=== PATIENT | male | born 1945 | race Caucasian/White ===

== ENCOUNTER → 2017-08-23 | Outpatient (CLI) | payer OTHER, MEDICARE | LOC: FIMAGING 10:34 | PROVIDERS: ATTEND Orthopaedic Surgery | DX: M17.12 Unilateral primary osteoarthritis, left knee (principal); M25.462 Effusion, left knee ==

== ENCOUNTER 2017-09-04 09:15 | Observation (INO) | payer OTHER, MEDICARE ==
[~2017-09-04 09:15] MED LIST: ROPIVACAINE 0.2% 80 MG, EPINEPHrine 0.2 MG, KETOROLAC TROMETHAMINE 30 MG in SYRINGE 0 ML IU ONE; TRANEXAMIC ACID 3,000 MG in NS 50 ML IRR ONE
[2017-09-04] MEDS ORDERED: TRANEXAMIC ACID 3,000 MG/50 ML BAG IRR ONE (10:48)
[2017-09-04] MEDS ORDERED: VANCOMYCIN 1 GM VIAL ONE (10:48)
--- NOTE | 2017-09-04 11:06 | PDHPUP ---
History & Physical Update H&P update statement: This history and physical update is based on an assessment of the patient which was completed after admission or registration (within 24 hours), but prior to the surgery/procedure. H&P update: H&P reviewed & patient examined, no change in patient's condition since H&P completed
[2017-09-04] MEDS ORDERED: LIDOCAINE 1% 2 ML INJ ID PRN (11:38)
[2017-09-04] MEDS ORDERED: ACETAMINOPHEN 325 MG TAB PO ONE (11:38)
[2017-09-04] MEDS ORDERED: ceFAZolin 2 GM/SWFI 2 GM/20 ML SYR IVP ONE (11:38)
[2017-09-04] MEDS ORDERED: DEXAMETHASONE 4 MG/ML VIAL IVP ONE (11:38)
[2017-09-04] MEDS ORDERED: FAMOTIDINE 20 MG TAB PO ONE (11:38)
[2017-09-04] MEDS ORDERED: LR 1,000 ML IV ONE (11:38)
[2017-09-04] MEDS ORDERED: PROPOFOL/EMULSION 500 MG/50 ML BOTTLE IV ONE (12:08)
[2017-09-04] MEDS ORDERED: LIDOCAINE 2% 5 ML SDV ONE (12:09)
[2017-09-04] MEDS ORDERED: ACETAMINOPHEN 325 MG TAB ONE (12:24)
--- NOTE | 2017-09-04 13:03 | PDANEPAE ---
ANE History of Present Illness left knee OA ANE Past Medical History - Cardiovascular History Hx Hypertension: No Hx Arrhythmias: No Hx Chest Pain: No Hx Coronary Artery / Peripheral Vascular Disease: No Hx CHF / Valvular Disease: No Hx Palpitations: No - Pulmonary History Hx COPD: No Hx Asthma/Reactive Airway Disease: No Hx Recent Upper Respiratory Infection: No Hx Oxygen in Use at Home: No Hx Sleep Apnea: No Sleep Apnea Screening Result - Last Documented: Negative Pulmonary History Comment: L or R pt cannot remember which sidehemi diaphram not working correctly - Neurologic History Hx Cerebrovascular Accident: No Hx Seizures: No Hx Dementia: No - Endocrine History Hx Diabetes: No Hypothyroid: No Hyperthyroid: No Obesity: no - Renal History Hx Renal Disorders: No - Liver History Hx Hepatic Disorders: No - Neurological & Psychiatric Hx Hx Neurological and Psychiatric Disorders: Yes Neurological / Psychiatric History Comment: depression - Cancer History Hx Cancer: No - Congenital Disorder History Hx Congenital Disorders: No - GI History Hx Gastrointestinal Disorders: No - Other Health History Other Health History: inflammed hair follicle on buttock - Chronic Pain History Chronic Pain: Yes (right knee) - Surgical History Prior Surgeries: arthroscopy x 2 ANE Review of Systems Review of systems is: negative Review of Systems: - Exercise capacity METS (RN): 6 METS ANE Patient History - Allergies Allergies/Adverse Reactions: No Known Allergies Allergy (Verified 09/04/17 12:17) - Home Medications Home medications: home medication list seen and reviewed Home Medications: Acetaminophen [Tylenol 325mg (*)] 325 mg PO DAILY PRN 07/30/17 [Last Taken 08/28] Cholecalciferol Vit D3 [Vitamin D3 2000 units tab (OTC)] 2,000 units PO DAILY [Last Taken 08/21/17] Escitalopram Oxalate [Lexapro] 20 mg PO DAILY 07/30/17 [Last Taken 09/04/17 08: 00] RX: Herbals/Supplements -Info Only 1 ea PO DAILY 07/30/17 [Last Taken 08/21/17] Vitamin B Complex [Super B-50 Complex] 1 each PO DAILY 07/30/17 [Last Taken ] buPROPion XL [Wellbutrin Xl] 150 mg PO DAILY 07/30/17 [Last Taken 09/04/17 08:00 ] - NPO status NPO Since - Liquids (Date): 09/04/17 NPO Since - Liquids (Time): 10:00 NPO Since - Solids (Date): 09/03/17 NPO Since - Solids (Time): 23:30 - Anes Hx Anes Hx: no prior problems - Smoking Hx Smoking Status: Never smoked - Family Anes Hx Family Hx Anesthesia Complications: none ANE Labs/Vital Signs - Vital Signs Blood Pressure: 136/92 Heart Rate: 70 Respiratory Rate: 14 O2 Sat (%): 90 Height: 177.8 cm Weight: 71.668 kg ANE Physical Exam - Airway Neck exam: FROM Mallampati Score: Class 1 Mouth exam: normal dental/mouth exam - Pulmonary Pulmonary: no respiratory distress - Cardiovascular Cardiovascular: regular rate and rhythym - ASA Status ASA Status: II ANE Anesthesia Plan Anesthesia Plan: spinal Regional Anesthesia: single shot NB, adductor canal FNB
[2017-09-04] MEDS ORDERED: fentaNYL 100 MCG/2 ML INJ ONE ×2 (13:24→14:35)
[2017-09-04] MEDS ORDERED: DEXAMETHASONE 4 MG/ML VIAL ONE (13:35)
[2017-09-04] MEDS ORDERED: PHENYLEPHRINE HCL 100 MCG/ML SYR ONE (13:49)
[2017-09-04] MEDS ORDERED: ONDANSETRON 4 MG/2 ML VIAL IVP PRN ×2 (14:08→14:47)
[2017-09-04] MEDS ORDERED: ACETAMINOPHEN 500 MG TAB PO PRN (14:08)
[2017-09-04] MEDS ORDERED: OXYCODONE/APAP 5/325 TAB PO PRN (14:08)
[2017-09-04] MEDS ORDERED: NALOXONE HCL 0.4 MG/ML INJ IVP PRN (14:08)
[2017-09-04] MEDS ORDERED: LR 500 ML IV PRN (14:08)
[2017-09-04] MEDS ORDERED: HYDROmorphONE/DILAUDID 1 MG/ML INJ IVP PRN (14:08)
[2017-09-04] MEDS ORDERED: PROMETHAZINE HCL 25 MG/ML INJ IVP PRN ×2 (14:08→14:47)
[2017-09-04] MEDS ORDERED: fentaNYL 100 MCG/2 ML INJ IVP PRN (14:08)
--- NOTE | 2017-09-04 14:08 | POSTANESTH ---
Post Anesthetic Evaluation Cardiovascular Status: Normal, Stable Respiratory Status: Normal, Stable Level of Consciousness/Mental Status: Can Participate in Eval Pain Control: Adequate, Prn Tx Ordered Nausea/Vomiting Control: Adequate, Prn Tx Ordered Complications Possibly Related to Anesthesia: None Noted
[2017-09-04] MEDS ORDERED: PROMETHAZINE HCL 25 MG SUPPR PR PRN (14:47)
[2017-09-04] MEDS ORDERED: POLYETHYLENE GLYCOL 3350 17 GM PKT PO PRN (14:47)
[2017-09-04] MEDS ORDERED: DIPHENOXYLATE/ATROPINE LOMOTIL 1 TAB PO PRN (14:47)
[2017-09-04] MEDS ORDERED: MAGNESIUM HYDROXIDE 30 ML UDCUP PO PRN (14:47)
[2017-09-04] MEDS ORDERED: TEMAZEPAM 15 MG CAP PO PRN (14:47)
[2017-09-04] MEDS ORDERED: LACTULOSE 20 GM/30 ML UDCUP PO PRN (14:47)
[2017-09-04] MEDS ORDERED: CYCLOBENZAPRINE 10 MG TAB PO PRN (14:47)
[2017-09-04] MEDS ORDERED: diphenhydrAMINE 25 MG CAP PO PRN (14:47)
[2017-09-04] MEDS ORDERED: METOCLOPRAMIDE 10 MG/2 ML VIAL IVP PRN (14:47)
[2017-09-04] MEDS ORDERED: oxyCODONE IR 5 MG TAB PO PRN (14:47)
[2017-09-04] MEDS ORDERED: BISACODYL 10 MG SUPP PR PRN (14:47)
[2017-09-04] MEDS ORDERED: ONDANSETRON DISINTEGRATING 4 MG TAB PO PRN (14:47)
--- NOTE | 2017-09-04 14:47 | POSTOPPROG ---
Post Op Note Date of Operation: 09/04/17 Surgeon: Suma Coley Paper Colorer: tatianna coley Anesthesiologist: dr. moralez Anesthesia: Spinal, Other (Specify) (adductor canal block) Pre-op Diagnosis: left knee OA Post-op Diagnosis: same Indication: left knee pain due to OA that failed conservative measures Procedure: L TKA robot assist Findings: severe knee OA Inf/Abcess present in the surg proc area at time of surgery?: No EBL: 50-100
[2017-09-04] MEDS ORDERED: LR 1,000 ML IV SCH (15:00)
[2017-09-04] MEDS: ACETAMINOPHEN 325 MG TAB PO SCH ×2 (18:21→22:36)
[2017-09-04] MEDS: FAMOTIDINE 20 MG TAB PO SCH (20:35)
[2017-09-04] MEDS: SENNOSIDES/DOCUSATE SODIUM TAB PO SCH (20:35)
[2017-09-04] MEDS: ASPIRIN 81 MG CHEWABLE TAB PO SCH (20:35)
[2017-09-04] MEDS: ceFAZolin 2 GM/DEXTROSE 100 ML IV SCH (20:35)
[2017-09-05] MEDS: ACETAMINOPHEN 325 MG TAB PO SCH (05:55)
[2017-09-05] MEDS: ceFAZolin 2 GM/DEXTROSE 100 ML IV SCH (05:55)
[2017-09-05 07:37] VITALS: BP 145/78; PULSE 64; RESP 16; TEMP 97.6; O2SAT 93
--- NOTE | 2017-09-05 08:39 | SOAPPROG ---
SOAP Progress Note Assessment/Plan: Assessment: Patient is doing well POD 1 s/p L TKA Pain management: pain is well controlled on oral pain meds. VTE ppx: recommend aspirin 81mg BID for 4 weeks, cont QIAN and SCDs Anemia: level is expected initially postop. Asymptomatic. Continue to monitor D/c planning: d/c to home today pending release from PT Plan: 09/05/17 08:38 Subjective: patient is resting comfortably, denies SOB, ches tpain and N/V Objective: Vital Signs Temp Pulse Resp BP Pulse Ox 36.4 C 64 16 145/78 H 93 09/05/17 07:34 09/05/17 07:34 09/05/17 07:34 09/05/17 07:34 09/05/17 07:34 Laboratory Results 09/05/17 04:24 09/04/17 09/05/17 09/06/17 05:59 05:59 05:59 Intake Total 3200 Output Total 1230 Balance 1970 LLE; incision dressing is clean and dry, NVI, +pf/df ICD10 Worksheet Patient Problems: Problems Problem Status Onset Primary localized osteoarthritis of left knee Acute
--- NOTE | 2017-09-05 08:43 | GOP ---
[f rep st] OPERATIVE REPORT DATE OF OPERATION: 09/04/2017 SURGEON: Stacey Bray MD ANESTHESIA: Spinal. PREOPERATIVE DIAGNOSIS: Left knee osteoarthritis. POSTOPERATIVE DIAGNOSIS: Left knee osteoarthritis. PROCEDURE PERFORMED: Left total knee arthroplasty. FINDINGS/PATHOLOGY: Severe tricompartmental osteoarthritis. ESTIMATED BLOOD LOSS: 30 cc. INDICATIONS: This is a 72-year-old man with severe and progressive pain and deformity of the left knee unresponsive to conservative care. Risks and benefits of the surgical intervention were explained in detail. DESCRIPTION OF PROCEDURE: The patient was brought to the operative room and placed on the table in the supine position. Spinal anesthesia was induced without difficulty. A pneumatic tourniquet was applied about the left proximal thigh, and the leg was prepped and draped in a sterile fashion. The leg garcia was applied. After exsanguination by elevation the tourniquet was inflated to 275 mm of mercury. Incision was made anterior medial from the tibial tuberosity to a point 2 cm proximal to the superior pole of the patella. Medial parapatellar arthrotomy was carried out from the superior pole of the patella and posteriorly in line with the fibers of the Type II VMO. The medial collateral ligament was elevated and the infrapatellar fat pad was resected. The patella was everted and the articular surface was excised. A 40 mm patellar button was placed. Attention was turned first to the distal aspect of the left femur. At 3 cm proximal to the medial rise of the femur, 2 percutaneous half pins were placed for fixation of the femoral array. In a similar fashion, 2 pins were placed anteromedial on the tibia for fixation of the tibial array. External land marking and registration of the hip center was performed without difficulty. Internal femoral and tibial registration was carried out without difficulty and the femoral and tibial checkpoints were placed and verified for accuracy. Attention was turned to the femur. The foot print for the size 6 femoral component was cut with the saw using the [employer] robotic system and verified for accuracy against the CT based plan. In a similar fashion, saw was used to cut the footprint for the size 6 tibial component using the [employer] system and verified for accuracy against the CT based plan. The tibial articular surface was excised without difficulty, followed by the intercondylar box cut. The knee was extended and the remnants of the medial and lateral meniscus were excised. The posterior capsule was injected with ropivacaine, epinephrine and Toradol. A size 6 tritanium tibial tray was positioned. Trial reduction was then carried out. There was excellent range of motion, alignment, and stability using the 9 mm polyethylene. All trials were then removed. The joint was thoroughly irrigated and carefully dried. The press fit components were implanted. The permanent 9 mm polyethylene was placed without difficulty. The tourniquet was deflated and all bleeders were coagulated. The wound was thoroughly irrigated and closed using interrupted sutures of 2-0 Vicryl for the joint capsule. The subcu was closed with 3-0 Vicryl and the skin with 4-0 Monocryl. Dermabond and Steri-Strips were applied followed by a compressive dressing. The patient was then moved from the operating room to the recovery room in good condition, having tolerated the procedure well. /[id number]/MODL MTDD
[2017-09-05] MEDS ORDERED: NON-FORMULARY NEW DRUG (Escitalopram Oxalate [Lexapro] 20 MG) PO SCH (09:00)
[2017-09-05] MEDS ORDERED: buPROPion XL 150 MG TAB PO SCH (09:00)
[2017-09-05] MEDS ORDERED: ESCITALOPRAM OXALATE 10 MG TAB PO SCH (09:00)
--- NOTE | 2017-09-05 09:42 | GDS ---
[f rep st] DISCHARGE SUMMARY ADMISSION DIAGNOSIS: Left knee osteoarthritis. DISCHARGE DIAGNOSIS: Left knee osteoarthritis. PROCEDURE: Left total knee arthroplasty. VTE PROPHYLAXIS: Aspirin recommended, 81 mg twice daily for 4 weeks. BRIEF DESCRIPTION OF HOSPITAL STAY: Patient was admitted for an elective joint arthroplasty. The pa chinyere tolerated the procedure well and has passed physical therapy. The patient was given appropriat e antibiotic prophylaxis and venous thromboembolism prophylaxis. The patient's pain was well control led on oral pain medication, patient was holding down food, and had urinated. Decision was made to d ischarge the patient. The patient was given post-operative prescriptions pre-operatively. PLAN: Please follow up as scheduled, Dr. Bray's office September 26 at 10:15. /[id number]/MODL
[2017-09-05] MEDS: ASPIRIN 81 MG CHEWABLE TAB PO SCH (09:47)
[2017-09-05] MEDS: FAMOTIDINE 20 MG TAB PO SCH (09:47)
[2017-09-05] MEDS: SENNOSIDES/DOCUSATE SODIUM TAB PO SCH (09:47)
--- NOTE | 2017-09-05 10:50 | ASMTCMCOM ---
CM Note CM Note Notes: Pt medically stable for d/c, no CM d/c needs identified. Pt reports no financial need for cab vouchers, reports he will have friends/family take him to outpatient PT or use cab services. Date Signed: 09/05/2017 10:50 AM Electronically Signed By:JAZ Lemus
--- NOTE | 2017-09-05 12:14 | ASDISCHSUM ---
Discharge Information Plan Status:Home with No Needs Medically Cleared to Leave: Discharge Date:09/05/2017 11:35 AM CM D/C Disposition:Home, Routine, Self-Care ADT D/C Disposition:Home, Routine, Self-Care Projected Discharge Date:09/05/2017 11:35 AM Transportation at D/C: Discharge Delay Reason: Follow-Up Date:09/05/2017 11:35 AM Discharge Slot: Final Diagnosis: Placement Information Patient Contact Information Contact Name:OR[place]O Relationship:Friend Address: City: [facility] [place] Phone: [facility]/Zip Code: Email: Financial Information Financial Class: Primary Plan Desc:MEDICARE OUTPATIENT Primary Plan Number:[id number] Secondary Plan Desc:[employer]/MDR SUPPLEMENT Secondary Plan Number:[id number] Assessment Information 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 CM Note CM Note Notes: Wu is planning to discharge home. His friend is going to take care of him for 1 week after surgery. Wu has set up outpatient physical therapy starting Sep 11. He does not have transportation though, so I let him know [employer] can provide cab vouchers. He had a question regarding medications and I provided him with the number for Dr. Alvarez' office. He has all mobility equipment and is well prepared. Wu scored a 9 on the RAPT scale, meaning additional intervention to discharge home might be needed. Date Signed: 08/27/2017 03:13 PM Electronically Signed By:Helga Pringle [facility] CM Progress Note CM Note CM Note Notes: Pt medically stable for d/c, no CM d/c needs identified. Pt reports no financial need for cab vouchers, reports he will have friends/family take him to outpatient PT or use cab services. Date Signed: 09/05/2017 10:50 AM Electronically Signed By:JAZ Lemus Intervention Information Intervention Type:*Incorrect Registration Date of Service:09/04/2017 03:20 PM Patient Type:Inpatient Staff Member:SOPHIE Daniels, Rosa Hours: Discipline: Severity: Comment:
== END 2017-09-05 11:35 | disposition home or self-care (01) ==
LOC: F3E 11:25 → INTOOBSV 11:25 → F3N 15:47
PROVIDERS: ADMIT Orthopaedic Surgery; ATTEND Orthopaedic Surgery
DX: M17.12 Unilateral primary osteoarthritis, left knee (principal); M25.562 Pain in left knee; F32.9 Major depressive disorder, single episode, unspecified
CPT/HCPCS: 20985; 27446; 73560; 88311; 97110; 97161; 97165; 97535; C1776; G8978; G8979; G8980; G8987; G8988; G8989; J0171; J0690; J1100; J1885; J2370; J2704; J2795; J3010; J3370